=== PATIENT | female | born 1950 | race Caucasian/White ===

== ENCOUNTER 2023-09-30 09:07 | Outpatient (CLI) | payer MEDICARE, SELFPAY ==
[2023-09-30 10:18] LABS: Anion Gap 5 mmol/L (8-16); Blood Urea Nitrogen 25 mg/dL (7-17); Calcium 9.7 mg/dL (8.4-10.2); Carbon Dioxide 33 mmol/L (22-30); Chloride 100 mmol/L (98-107); Estimated Glomerular Filt Rate > 60; Glucose 170 mg/dL (65-110); Potassium 4.1 mmol/L (3.4-5.0); Sodium 138 mmol/L (137-145)
[2023-09-30 10:22] LABS: INR 0.9; Partial Thromboplastin Time 31.7 SECONDS (22.3-36.8); Prothrombin Time 12.9 Seconds (11.1-14.7)
== END 2023-09-30 09:08 | disposition home or self-care (01) ==
LOC: ANHSURGERY 09:24
PROVIDERS: Anesthesiology; Visit Provider Urology
DX: E11.9 Type 2 diabetes mellitus without complications (principal); N20.0 Calculus of kidney; Z01.818 Encounter for other preprocedural examination
CPT/HCPCS: 36415; 80048; 85610; 85730; 87086

== ENCOUNTER 2023-10-10 01:26 | Day surgery (SDC) | payer MEDICARE, SELFPAY ==
--- NOTE | 2023-09-26 13:35 | PC.NURSE ---
Report to the Outpatient Waiting Room, entrance under the green pavilion located off [facility], at time __729 on date __10/10/23 . Planned Procedure Time: __929 . Time changes happen often and if your time is changed the preop area will call you the afternoon before. - You and your visitor will be asked to self-screen and do not enter if you have any COVID symptoms. - A mask is optional within the hospital at this time. Patients may have clear liquids (water, carbonated beverages, clear teas, apple juice) until 3 hours prior to surgery( 6:30 AM) with a maximum of 20 ounces. - No food from midnight until time of surgery - Infants may have breast milk until 4 hours before surgery, formula 6 hours prior to surgery. - Children will be allowed to drink immediately following surgery. If applicable, please bring a bottle or sippy cup to assist with drinking. Juice, water, soda, and popsicles are readily available. For infants on formula, please bring formula the day of surgery. Pacifiers are allowed. Take the following medications with a SIP of water the morning of surgery: __INHALERS,FLUOXETINE,METOPROLOL,PREGABALIN DO NOT STOP ANY OF YOUR OTHER PRESCRIPTION MEDICATIONS PRIOR TO SURGERY ?EXCEPT THE FOLLOWING Medications to discontinue per physician ___HOLD ASPIRIN AND PLAVIX PER DR BARRETO. HOLD ALL VITAMINS AND SUPPLEMENTS 3 DAYS PRE OP.LAST DOSE 10/06/23 Please no make-up, nail occitan, hairspray, perfume, deodorant, or body powder the day of surgery. No jewelry (including any body piercings) or valuables the day of surgery, leave them at home. Please take a shower or bath the night before, or the morning of, surgery with an antibacterial soap. Wear comfortable, loose fitting clothing. Children are encouraged to wear pajamas. - Jewelry must be removed prior to entering the operating room. Rings and piercings that are not removed may be cut off. - The hospital will not accept responsibility for valuables. - Please leave all valuables, including medications, at home the day of surgery. If you are going home after surgery, a licensed stud driver must drive you home. - NO public transportation without another adult if you receive anesthesia. - We recommend that an adult stay with you for 24 hours following discharge. - We also recommend that you do not drive, make important decision, drink alcoholic beverages, or take any drugs that were not prescribed by your health care provider for at least 24 hours after your discharge time. For Pediatric surgeries, we recommend two adults accompany the child home. Follow any additional instructions given to you from your surgeon. If you or anyone in your household have experienced Covid symptoms in the past week, please notify your surgeon or the nurse liaison at the phone number below for possible testing. Telephone instructions given to _PT'S DAUGHTER IN LAW NOVEMBER and asked if any additional questions and then verbalized understanding. Patient advised to call surgeon office or pre surgery nurse liaison [phone] if any additional questions.
[2023-09-26 13:52] VITALS: BMI 25.7
[2023-10-10] VITALS (7 sets, daily range): BP systolic 139–160; BP diastolic 64–70; PULSE 83–87; RESP 8–20; TEMP 36.3–37; O2SAT 93–100
--- NOTE | ~2023-10-10 | XR_ITS ---
EXAMINATION: XR abdomen/kub 1V INDICATION: Urolithiasis TECHNIQUE: Supine view of the abdomen is obtained. COMPARISON: None FINDINGS: A 4 mm stone projects over the left kidney. No definite additional urolithiasis is identifi ed. There are phleboliths of the pelvis. Calcified atherosclerosis is noted. The bowel gas pattern is normal. There is moderate osteoarthritis of the hips. IMPRESSION: 1. Left nephrolithiasis. Reviewed, dictated and finalized at location B. TRUCTION SAFETY CONSULTANT IMPRESSION: 1. Left nephrolithiasis.
--- NOTE | ~2023-10-10 | CT_ITS ---
EXAMINATION: CT abdomen pelvis wo con DATE: 10/10/2023 08:26 INDICATION: Left ureteral stone TECHNIQUE: Computed tomography (CT) of the abdomen and pelvis was performed without intravenous contr ast. The dose-length product (DLP) was 225.78 mGy-cm. Automated exposure control and iterative recons truction technique were employed. COMPARISON: Radiograph from today FINDINGS: Calcified nodules of the visualized lung bases are consistent with old granulomatous diseas e. The heart size is normal. The liver, spleen, pancreas, gallbladder, and adrenal glands are normal. The 4 mm calcification described on the comparison radiograph appears to reflect a vascular calcific ation. No stones are identified in the kidneys. There are no definite stones of the ureters or bladde r. There is a questionable 2 mm stone of the urethra. No hydronephrosis or hydroureter. There is a 1. 9 cm soft tissue density mass projecting posteriorly from the left kidney lower pole. There is calcif ied atherosclerosis of the aorta and many of the other arteries. No pathologically enlarged abdominal or pelvic lymph nodes are identified. No free intraperitoneal gas or evidence of bowel obstruction. The appendix is normal. There is a right inguinal hernia containing fat. A left superficial femoral a rtery bypass graft is noted. There is moderate lumbar spondylosis. IMPRESSION: 1. No stones identified in the kidneys, ureters, or bladder. Possible 2 mm stone of the urethra. 2. Indeterminate soft tissue density mass of the left kidney. Follow-up CT or MRI without and with co ntrast is recommended. Reviewed, dictated and finalized at location B. E REPAIRER IMPRESSION: 1. No stones identified in the kidneys, ureters, or bladder. Possible 2 mm ston e of the urethra. 2. Indeterminate soft tissue density mass of the left kidney. Follow-up CT or M RI without and with contrast is recommended.
--- NOTE | 2023-10-10 06:10 | WPDHPUPDATE1 ---
History and Physical Update Update Date/Time: 10/10/23 06:10 History and Physical has been reviewed, including an updated exam of the patient. There are NO changes in the patient's condition. Risks, benefits, and alternatives have been discussed and questions answered. Patient agrees to proceed with procedure.
[2023-10-10] MEDS: LACTATED RINGERS 1,000 ML 30 ML IV CONT (08:55)
[2023-10-10 09:07] LABS: Glucose Point of Care 120 mg/dl (65-105)
--- NOTE | 2023-10-10 09:11 | WPDANESEPPF ---
Anes - Initial Pre Proc Eval Procedure: Operation Date: 10/10/23 09:30 Proposed Procedures p Left Extracorporeal Shock Wave Lithotripsy - Ramone Pineda MD Date/Time: 10/10/23 09:11 Surgeon: Ramone Pineda MD Pre Op Diagnosis: left kidney stone Patient Data Age: 72 Gender: F Height: 1.52 m Weight: 59.9 kg Allergies Allergy/AdvReac Type Severity Reaction Status Date / Time adhesive Allergy Unknown Rash Verified 10/10/23 08:12 codeine Allergy Unknown Rash Verified 10/10/23 08:12 metformin AdvReac Mild Diarrhea Verified 10/10/23 08:12 Home Medications Medication Instructions Recorded Confirmed Type albuterol sulfate 90 mcg/actuation 2 puff inhalation QID PRN SOB 12/18/22 10/10/23 History aerosol inhaler aspirin 81 mg tablet 81 mg PO DAILY 12/18/22 10/10/23 History atorvastatin 40 mg tablet (Lipitor) 40 mg PO HS 12/18/22 10/10/23 History cholecalciferol (vitamin D3) See Rx Instructions .Route .COMPLEX 12/18/22 09/26/23 History clopidogrel 75 mg tablet (Plavix) 75 mg PO DAILY 12/18/22 09/26/23 History furosemide 20 mg tablet (Lasix) 20 mg PO DAILY 12/18/22 09/26/23 History hydroxyzine HCl 25 mg tablet 25 mg PO QID PRN Itching 12/18/22 09/26/23 History insulin lispro 100 unit/mL 10 unit subcut TID 12/18/22 09/26/23 History subcutaneous solution (Humalog U-100 Insulin) magnesium oxide 250 mg PO DAILY 12/18/22 09/26/23 History metoprolol succinate 50 mg 50 mg PO QAM 12/18/22 09/26/23 History tablet,extended release 24 hr pantoprazole 40 mg tablet,delayed 40 mg PO QAM 12/18/22 09/26/23 History release (Protonix) pregabalin 75 mg capsule (Lyrica) 75 mg PO BID 12/18/22 09/26/23 History ramipril 10 mg capsule (Altace) 10 mg PO BID 12/18/22 09/26/23 History senna-docusate sodium tablet 1 tablet PO EVERY OTHER DAY 12/18/22 09/26/23 History acetaminophen 325 mg tablet (Mapap 650 mg PO Q6H PRN Mild Pain (1-3) 01/09/23 09/26/23 Rx (acetaminophen)) Or Fever #14 tabs fluoxetine 40 mg capsule (Prozac) 40 mg PO DAILY #1 cap 01/09/23 09/26/23 Rx azithromycin 250 mg tablet 250 mg PO 3XW RESP INFECTIONS 09/26/23 09/26/23 History budesonide 160 mcg-glycopyr 9 2 inh inhalation BID 09/26/23 09/26/23 History mcg-formot 4.8 mcg/actuation HFA inhaler (Breztri Aerosphere) cyclobenzaprine 10 mg tablet 5 mg PO HS PRN Muscle Spasm 09/26/23 09/26/23 History dapagliflozin propanediol 10 mg 10 mg PO DAILY 09/26/23 09/26/23 History tablet (Farxiga) dulaglutide 1.5 mg/0.5 mL 3 mg subcut WEEKLY 09/26/23 09/26/23 History subcutaneous pen injector (Trulicity) fenofibrate 160 mg tablet 160 mg PO DAILY 09/26/23 09/26/23 History insulin glargine 100 unit/mL (3 42 unit subcut QPM 09/26/23 09/26/23 History mL) subcutaneous pen (Basaglar KwikPen U-100 Insulin) latanoprost 0.005 % eye drops 1 drp EACH EYE HS 09/26/23 09/26/23 History Laboratory Tests 10/10/23 09:04 POC Capillary Glucose 120 H mg/dl (65-105) Patient hx anesthesia problems: post op nausea/vomiting Family hx anesthesia problems: none Results Review: All pre-operative results and documents have been reviewed as part of the pre-operative evaluation. [facility] Family History Family History Sibling Family history of liver disease, Onset Age: 48 Patient's sister is Patient's brother is Mother Family history of congestive heart failure, Onset Age: 62 Patient's mother is Father Patient's father is Other Asthma Depression Diabetes mellitus Family history of arthritis Family history of cardiovascular disease Family history of chronic obstructive pulmonary disease Family history of mental disorder Hypertension Social History Social History Smoking packs per day: 1 Smoking cigarettes per day: 20.0 Years smoked: 55 Smo
[2023-10-10] MEDS: ceFAZolin 2 GM/D5W 50 ML 2 GM/50 ML BAG IVPB (09:35)
--- NOTE | 2023-10-10 09:57 | P.OP_ITS ---
Procedure Note - Detailed Date of Procedure 10/10/23 Pre-op Diagnosis Left ureteral stone Post-op Diagnosis Same Procedure Performed Cystoscopy, left retrograde pyelography left ESWL Surgeon Ramone Pineda MD Anesthesia General Description of Procedure admission patient has 11 mm left ureteral stone which had been identified on CT scan at outside hospital was difficult to see on KUB. A noncontrast CT scan the abdomen pelvis suggested the presence of a persistent stone over her left sacroiliac joint she had several phleboliths in that area which render our interpretation inconclusive. Therefore, I opted to do cystoscopy with left retrograde pyelography at the time of this procedure after the uneventful induction of a general anesthetic she was prepped and draped in a routine fashion while in a lithotomy position. Cystoscopy was undertaken with a 16 F flexible cystoscope. Bladder neck and urethra were normal. Bladder mucosa was normal. She had a single orthotopic ureteral orifice. A 0.035 in glidewire was advanced into the left ureter where I could feel the stone in passing the stent. Retrograde pyelography with a Crowley catheter confirmed the presence of a filling defect in her left mid ureter. The wire and ureteral catheter was removed and extra corporal shockwave lithotripsy was delivered to that site using a total of 3000 shocks at a power up to 5. Pathology None sent Complications No immediate complications Condition Stable Disposition PACU
[2023-10-10 11:04] LABS: Glucose Point of Care 112 mg/dl (65-105)
== END 2023-10-10 12:18 | disposition home or self-care (01) ==
PROVIDERS: PCP Family Medicine; Visit Provider Urology
PROC: (CPT 50590; principal; 2023-10-10 09:30)
DX: N20.1 Calculus of ureter (principal); I10 Essential (primary) hypertension; I25.10 Atherosclerotic heart disease of native coronary artery without angina pectoris; J44.9 Chronic obstructive pulmonary disease, unspecified; E11.51 Type 2 diabetes mellitus with diabetic peripheral angiopathy without gangrene; K21.9 Gastro-esophageal reflux disease without esophagitis; K58.9 Irritable bowel syndrome, unspecified; Z95.1 Presence of aortocoronary bypass graft; Z79.51 Long term (current) use of inhaled steroids; Z79.02 Long term (current) use of antithrombotics/antiplatelets; Z79.4 Long term (current) use of insulin; Z79.85 Long-term (current) use of injectable non-insulin antidiabetic drugs; Z79.84 Long term (current) use of oral hypoglycemic drugs; F17.210 Nicotine dependence, cigarettes, uncomplicated
CPT/HCPCS: 50590; 74018; 74176; 82948; C1758; C1769; J0690; J1100; J2405; J2704; J3010; J7120; Q9966